=== PATIENT | male | born 1945 | race Hispanic/Latino ===

== ENCOUNTER 2020-07-07 14:14 | Inpatient (IN) | payer OTHER ==
[~2020-07-07] VITALS: Ht 170.2 cm; Wt 90.4 kg
[2020-07-07 15:00] LABS: ABG BASE EXCESS 1.4 mmol/L (-2.0-3.0); ABG HCO3 25.4 mmol/L (21.0-28.0); ABG OXYGEN SATURATION 95.2 % (95.0-99.0); ABG PCO2 38 mmHg (35-48)
[2020-07-07 15:29] LABS: BASOPHILS % (AUTO) 0.4 % (0.0-5.0); EOSINOPHILS % (AUTO) 0.9 % (0.0-8.0); HEMATOCRIT 30.1 % (42-54); LYMPHOCYTES % (AUTO) 13.9 % (21.0-51.0); MEAN CORPUSCULAR HEMOGLOBIN 33.4 pg (27.0-33.0); MEAN CORPUSCULAR HGB CONC 35.2 g/dL (32.0-36.0); MONOCYTES % (AUTO) 6.4 % (3.0-13.0); NEUTROPHILS % (AUTO) 77.3 % (40.0-77.0); PLATELET COUNT (AUTO) 28 K/uL (130-400); RED BLOOD CELL COUNT(AUTO) 3.17 MIL/uL (4.50-6.20); RED CELL DISTRIBUTION WIDTH 14.3 % (11.0-15.5)
[2020-07-07 15:51] LABS: B-TYPE NATRIURETIC PEPTIDE 146 pg/mL (0-100)
[2020-07-07 15:54] LABS: CREATININE 1.1 mg/dL (0.5-1.5); POTASSIUM 3.9 mmol/L (3.5-5.1)
[2020-07-07 15:55] LABS: INR 1.05 (0.85-1.15); PROTHROMBIN TIME 11.2 SEC (9.6-11.6)
[2020-07-07 15:56] LABS: PARTIAL THROMBOPLASTIN TIME 22.8 SEC (26.3-35.5)
[2020-07-07 15:59] LABS: ALBUMIN 3.5 g/dL (3.5-5.0); BILIRUBIN,TOTAL 1.3 mg/dL (0.2-1.0); TOTAL PROTEIN, SERUM 7.3 g/dL (6.0-8.3)
[2020-07-07] MEDS ORDERED: CEFTRIAXONE SODIUM 1 GM ONE (16:34)
[2020-07-07] MEDS: AMOXICILLIN/POTASSIUM CLAV 875-125 TABLET PO SCH (18:00)
[2020-07-07] MEDS ORDERED: ACETAMINOPHEN 325 MG TAB PO PRN ×2 (18:00)
[2020-07-07] MEDS ORDERED: LACTULOSE 20 GM/30 ML UDCUP PO PRN (18:00)
[2020-07-07] MEDS ORDERED: ONDANSETRON HCL 4 MG/2 ML VIAL IV PRN (18:00)
[2020-07-07] MEDS ORDERED: GUAIFENESIN-DM 200/20 MG 10 ML PO PRN (18:00)
[2020-07-07] MEDS ORDERED: MAG HYDROX/AL HYDROX/SIMETH ES 30 ML SUSP UDCUP PO PRN (18:00)
[2020-07-07] MEDS ORDERED: DiphenhydrAMINE HCL 50 MG/ML VIAL IV PRN (18:00)
[2020-07-07] MEDS ORDERED: NITROGLYCERIN 0.4 MG SL TAB SL PRN (18:00)
[2020-07-07] MEDS ORDERED: LACTATED RINGERS 1000ML 1,000 ML IV SCH (18:00)
[2020-07-07] MEDS ORDERED: DIPHENHYDRAMINE HCL 25 MG CAPSULE PO PRN (18:00)
[2020-07-07] MEDS ORDERED: AMOXICILLIN/POTASSIUM CLAV 875-125 TABLET PO ONE (20:49)
[2020-07-07] MEDS ORDERED: METOPROLOL TARTRATE 25 MG TAB ONE (20:51)
[2020-07-07] MEDS: METOPROLOL TARTRATE 25 MG TAB PO SCH (21:00)
[2020-07-07 21:13] LABS: HEMATOCRIT 28.4 % (42-54); MEAN CORPUSCULAR HEMOGLOBIN 32.6 pg (27.0-33.0); MEAN CORPUSCULAR HGB CONC 34.2 g/dL (32.0-36.0); MEAN CORPUSCULAR VOLUME 95.3 fL (79-99); PLATELET COUNT (AUTO) 32 K/uL (130-400); RED BLOOD CELL COUNT(AUTO) 2.98 MIL/uL (4.50-6.20); RED CELL DISTRIBUTION WIDTH 14.3 % (11.0-15.5); WHITE BLOOD COUNT (AUTO) 10.6 K/uL (4.8-10.8)
[2020-07-07 21:21] LABS: RETICULOCYTE % (AUTO) 6.06 % (0.42-2.23)
[2020-07-07 21:56] LABS: BAND NEUTROPHILS % (MANUAL) 2 % (0-2); EOSINOPHILS % (MANUAL) 2 % (1-6); LYMPHOCYTES % (MANUAL) 15 % (22-44); MAN.DIFF COMMENT-IMPRESSION MANUAL DIFFERENTIAL; MONOCYTES % (MANUAL) 3 % (2-9); REACTIVE LYMPHOCYTES 10 % (0-0); SEGMENTED NEUTROPHILS % 68 % (40-70)
[2020-07-07 22:14] VITALS: BP 160/81
[2020-07-08 02:47] LABS: APPEARANCE,URINE Clear (CLEAR); BILIRUBIN,URINE Negative (NEGATIVE); COLOR,URINE Dark Yellow (YELLOW); GLUCOSE, URINE (UA) Negative (NEGATIVE); KETONES,URINE Trace mg/dL (NEGATIVE); LEUKOCYTE ESTERASE ,URINE Negative (NEGATIVE); NITRATE,URINE Negative (NEGATIVE); OCCULT BLOOD,URINE Negative (NEGATIVE); PH,URINE 5.5 (5.0-8.0); PROTEIN,URINE Negative (NEGATIVE)
[2020-07-08 02:58] LABS: RBC,URINE 0-1 /HPF (0-1); WBC,URINE 0-1 /HPF (0-1)
[2020-07-08 02:59] LABS: BACTERIA,URINE Rare /HPF (None Seen); MUCUS,URINE Rare LPF (None Seen); SQUAMOUS EPITHELIAL CELL,UR 0-2 /HPF (0-2)
[2020-07-08 03:52] VITALS: BP 162/78
[2020-07-08] MEDS: AMOXICILLIN/POTASSIUM CLAV 875-125 TABLET PO SCH ×2 (05:04→17:59)
[2020-07-08 08:00] VITALS: BP 147/76
[2020-07-08 11:00] VITALS: BP 164/69
[2020-07-08] MEDS: METOPROLOL TARTRATE 25 MG TAB PO SCH ×2 (11:17→19:33)
[2020-07-08 11:21] LABS: HEMATOCRIT 29.8 % (42-54); MEAN CORPUSCULAR HEMOGLOBIN 33.4 pg (27.0-33.0); MEAN CORPUSCULAR HGB CONC 34.6 g/dL (32.0-36.0); MEAN CORPUSCULAR VOLUME 96.8 fL (79-99); PLATELET COUNT (AUTO) 51 K/uL (130-400); RED BLOOD CELL COUNT(AUTO) 3.08 MIL/uL (4.50-6.20); RED CELL DISTRIBUTION WIDTH 14.5 % (11.0-15.5); WHITE BLOOD COUNT (AUTO) 10.4 K/uL (4.8-10.8)
[2020-07-08 11:38] LABS: LYMPHOCYTES % (MANUAL) 14 % (22-44); MONOCYTES % (MANUAL) 7 % (2-9); REACTIVE LYMPHOCYTES 2 % (0-0); SEGMENTED NEUTROPHILS % 77 % (40-70)
[2020-07-08 11:39] LABS: PLATELET MORPHOLOGY COMMENT MARKED DECREASE
[2020-07-08 11:44] LABS: ALBUMIN 3.3 g/dL (3.5-5.0); BILIRUBIN,TOTAL 1.1 mg/dL (0.2-1.0)
[2020-07-08 11:49] LABS: THYROID STIMULATING HORMONE 3.04 uIU/mL (0.36-3.74)
[2020-07-08 16:00] VITALS: BP 164/75
[2020-07-08] MEDS: PREDNISONE 20 MG TABLET PO SCH (19:33)
[2020-07-08 20:00] VITALS: BP 152/66
[2020-07-08] MEDS ORDERED: HYDROMORPHONE HCL 2 MG/ML VIAL ONE (20:09)
[2020-07-08] MEDS ORDERED: HYDROMORPHONE HCL 0.5 MG/0.5 ML ML IVP PRN ×2 (20:15→23:00)
[2020-07-08] MEDS: HYDROMORPHONE HCL 2 MG/ML VIAL IVP PRN (23:49)
[2020-07-08 23:59] VITALS: BP 155/65
[2020-07-09] MEDS: HYDROMORPHONE HCL 2 MG/ML VIAL IVP PRN ×6 (01:05→05:54)
[2020-07-09 04:00] VITALS: BP 152/63
[2020-07-09] MEDS: AMOXICILLIN/POTASSIUM CLAV 875-125 TABLET PO SCH ×2 (05:48→17:40)
[2020-07-09 06:08] LABS: BASOPHILS % (AUTO) 0.1 % (0.0-5.0); HEMATOCRIT 31.7 % (42-54); LYMPHOCYTES % (AUTO) 9.1 % (21.0-51.0); MEAN CORPUSCULAR HEMOGLOBIN 32.8 pg (27.0-33.0); MEAN CORPUSCULAR HGB CONC 34.7 g/dL (32.0-36.0); MEAN CORPUSCULAR VOLUME 94.6 fL (79-99); MONOCYTES % (AUTO) 1.2 % (3.0-13.0); NEUTROPHILS % (AUTO) 88.8 % (40.0-77.0); PLATELET COUNT (AUTO) 96 K/uL (130-400); RED BLOOD CELL COUNT(AUTO) 3.35 MIL/uL (4.50-6.20); RED CELL DISTRIBUTION WIDTH 14.1 % (11.0-15.5); WHITE BLOOD COUNT (AUTO) 12.5 K/uL (4.8-10.8)
[2020-07-09 06:42] LABS: MAGNESIUM 2.1 mg/dL (1.80-2.40); POTASSIUM 4.1 mmol/L (3.5-5.1)
[2020-07-09 08:00] VITALS: BP 135/64
[2020-07-09 09:19] LABS: HEMOGLOBIN A1C 5.5 % (4.0-6.0)
[2020-07-09] MEDS: PANTOPRAZOLE SODIUM 40 MG TABLET.DR PO SCH (09:23)
[2020-07-09] MEDS: METOPROLOL TARTRATE 25 MG TAB PO SCH ×2 (09:23→19:44)
[2020-07-09] MEDS: PREDNISONE 20 MG TABLET PO SCH (09:23)
[2020-07-09 11:00] VITALS: BP 134/71
[2020-07-09] MEDS ORDERED: REGADENOSON 0.4 MG/5 ML PF SYG IVP SCH (11:00)
[2020-07-09 16:00] VITALS: BP 148/52
[2020-07-09 20:00] VITALS: BP 156/60
[2020-07-09] MEDS: HYDROMORPHONE 1 MG/1 ML AMP IVP PRN ×4 (20:10→23:35)
[2020-07-10] VITALS: BP 114/45
[2020-07-10] MEDS: HYDROMORPHONE 1 MG/1 ML AMP IVP PRN ×5 (00:30→05:31)
[2020-07-10 04:00] VITALS: BP 126/47
[2020-07-10] MEDS: AMOXICILLIN/POTASSIUM CLAV 875-125 TABLET PO SCH (05:21)
[2020-07-10 05:44] LABS: HEMATOCRIT 30.4 % (42-54); MEAN CORPUSCULAR HEMOGLOBIN 32.7 pg (27.0-33.0); MEAN CORPUSCULAR HGB CONC 34.2 g/dL (32.0-36.0); MEAN CORPUSCULAR VOLUME 95.6 fL (79-99); RED BLOOD CELL COUNT(AUTO) 3.18 MIL/uL (4.50-6.20); RED CELL DISTRIBUTION WIDTH 14.3 % (11.0-15.5); WHITE BLOOD COUNT (AUTO) 15.6 K/uL (4.8-10.8)
[2020-07-10 08:29] VITALS: BP 133/55
[2020-07-10] MEDS ORDERED: PREDNISONE 20 MG TABLET PO SCH (09:00)
[2020-07-10] MEDS: PANTOPRAZOLE SODIUM 40 MG TABLET.DR PO SCH (10:36)
[2020-07-10] MEDS: METOPROLOL TARTRATE 25 MG TAB PO SCH (10:36)
[2020-07-10 11:32] VITALS: BP 149/53
[2020-07-10] MEDS ORDERED: METO25 PO (17:58)
[2020-07-10] MEDS ORDERED: AMOX500T2 PO (17:58)
[2020-07-10] MEDS ORDERED: PANT40TA PO (17:58)
[2020-07-10 18:01] VITALS: BP 158/76
[2020-07-11 00:07] LABS: HEPATITIS A ANTIBODY IGM Negative (Negative); HEPATITIS B CORE IGM Negative (Negative); HEPATITIS Bs ANTIGEN SCREEN P Negative (Negative)
== END 2020-07-10 19:45 | disposition home or self-care (01) | DRG 313 ==
LOC: EDH 14:14 → EDHIP 14:15 → OBSVTOIN 14:15 → 3BH 20:27
PROVIDERS: ADMIT Family Medicine; ATTEND Family Medicine
DX: R07.9 Chest pain, unspecified (principal); D69.3 Immune thrombocytopenic purpura; I20.0 Unstable angina; I45.10 Unspecified right bundle-branch block; E66.9 Obesity, unspecified; M17.10 Unilateral primary osteoarthritis, unspecified knee; D69.6 Thrombocytopenia, unspecified; Z20.828 Contact with and (suspected) exposure to other viral communicable diseases; D53.9 Nutritional anemia, unspecified; D72.829 Elevated white blood cell count, unspecified; Z68.31 Body mass index [BMI] 31.0-31.9, adult
CPT/HCPCS: 36415; 36600; 71045; 76700; 78452; 80048; 80053; 80074; 81001; 82550; 82607; 82746; 82803; 83010; 83036; 83605; 83615; 83735; 83880; 84145; 84443; 84484; 85025; 85027; 85045; 85610; 85730; 86701; 87040; 87390; 87426; 87804; 87880; 93005; 93017; 93306; 93356; 96374; 99291; A9500; G0378; J0696; J1170; J2785; J7120; U0003